=== PATIENT | female | born 1940 | race Caucasian/White ===

== ENCOUNTER → 2017-02-23 | Day surgery (SDC) | payer MEDICARE, BC ==
[~2017-02-23] MED LIST: BUPIVACAINE LIPOSOME 20 ML SUS ONE; CEFAZOLIN SODIUM 1 GM PDS ONE; FENTANYL 100MCG/2ML SOL ONE; LIDOCAINE HCL 1% MPF SOL ONE; METOCLOPRAMIDE HYDROCHLORIDE 5 MG/ML SOL ONE; MIDAZOLAM 2 MG/2 ML SOL ONE; ONDANSETRON HCL 4 MG/2 ML SOL ONE; PROPOFOL 500 MG/50 ML EMU IV ONE
[2017-02-23 13:03] VITALS: RESP 16
[2017-02-23] MEDS: BUPIVACAINE HCL 0.5% MPF 10 ML SOL ONE ×2 (15:45→16:27)
[2017-02-23 17:44] VITALS: O2SAT 96
[2017-02-23 18:02] VITALS: BP 142/88; PULSE 66; TEMP 97
== END | disposition home or self-care (01) | DRG 566 ==
LOC: SURG 12:42
PROVIDERS: ATTEND Podiatrist
DX: M20.12 Hallux valgus (acquired), left foot (principal); M20.42 Other hammer toe(s) (acquired), left foot; M21.612 Bunion of left foot
CPT/HCPCS: J0690; J2250; J2405; J2765; J3010; L3260; A6402; J2001; J2704

== ENCOUNTER 2017-09-14 07:22 | Day surgery (SDC) | payer MEDICARE, BC ==
[2017-09-14 09:43] VITALS: RESP 20; TEMP 97.5; O2SAT 98
[2017-09-14 09:45] VITALS: BP 131/76; PULSE 56
== END 2017-09-14 09:50 | disposition home or self-care (01) | DRG 951 ==
LOC: SURG 07:22
PROVIDERS: ATTEND Surgery
DX: Z12.11 Encounter for screening for malignant neoplasm of colon (principal); K57.32 Diverticulitis of large intestine without perforation or abscess without bleeding; Z86.010 Personal history of colon polyps; Z98.0 Intestinal bypass and anastomosis status; K63.5 Polyp of colon; D12.4 Benign neoplasm of descending colon; E11.9 Type 2 diabetes mellitus without complications
CPT/HCPCS: J2001; J2704